=== PATIENT | male | born 1965 | race Caucasian/White ===

== ENCOUNTER → 2021-08-02 | Outpatient (CLI) | payer OTHER ==
[~2021-08-02] MED LIST: CORTISPORIN SUS10 ML OT; HUMALOG100 UNIT/2 SQ; HYDROCODONE BIT1 T11 PO; LEVEMIR10 ML SC; LISINOPRIL20 MG PO; SIMVASTATIN10 MG PO
== END | disposition home or self-care (01) ==
LOC: RAD 08:19
PROVIDERS: ATTEND Chiropractor
DX: M43.8X6 Other specified deforming dorsopathies, lumbar region (principal); M51.36 Other intervertebral disc degeneration, lumbar region

== ENCOUNTER 2025-04-27 08:17 | Emergency (ER) | payer OTHER ==
[2025-04-27] MEDS ORDERED: IOHEXOL 300 MG/ML 100 ML VIAL IV ONE (08:25)
[2025-04-27] MEDS ORDERED: SODIUM CHLORIDE 0.9% 1,000 ML IV ONE (08:44)
[2025-04-27] MEDS ORDERED: ceFAZolin sodium 2 GM in SYRINGE INFUSION 20 ML IV ONE (08:45)
[2025-04-27] MEDS ORDERED: IOHEXOL 300 MG/ML 100 ML VIAL ONE (08:50)
[2025-04-27] MEDS ORDERED: NOREPINEPHRINE BITARTRATE/D5W 250 ML IV ONE ×2 (08:52→11:00)
[2025-04-27] MEDS ORDERED: SODIUM CHLORIDE 0.9% 500 ML IV ONE ×2 (09:01→10:28)
[2025-04-27] MEDS ORDERED: TRANEXAMIC ACID IN NACL,ISO-OS 100 ML IV ONE (09:40)
[2025-04-27 09:56] LABS: MEAN CELL VOLUME 88.5 fl (80.0-94.0); MEAN CORPUSCULAR HGB 28.8 pg (27.0-31.0); MEAN PLATELET VOLUME 9.7 fl (9.6-12.3); NUCLEATED RED BLOOD CELL 0.0 % (0.0-0.0); NUCLEATED RED BLOOD CELL 0.0 10*3/uL (0.0-0.0); PLATELET COUNT AUTOMATED 231 10*3/uL (130-400); RED CELL DISTRI WIDTH 13.9 % (0-14.5)
[2025-04-27] MEDS ORDERED: VASOPRESSIN 100 ML IV SCH (10:00)
[2025-04-27 10:06] LABS: MANUAL DIFF REFLEX YES
[2025-04-27 10:16] VITALS: BP 79/43
[2025-04-27 10:16] LABS: ACT PARTIAL THROMBO TIME 27.6 SECONDS (20.0-32.1)
[2025-04-27 10:17] LABS: BUN 21.0 mg/dl (9-23); PLATELET SUFFICIENCY NORMAL (NORMAL); SGPT/ALT 46.0 U/L (5-49); VACUOLATION OF NEUTROPHILS SLIGHT
[2025-04-27] MEDS ORDERED: EPINEPHrine IN 0.9 % SOD CHLOR 250 ML IV ONE (10:59)
== END 2025-04-27 12:37 | disposition short-term general hospital (02) ==
LOC: ED 08:17
PROVIDERS: Student in an Organized Health Care Education/Training Program
DX: S32.592A Other specified fracture of left pubis, initial encounter for closed fracture (principal); S32.601A Unspecified fracture of right ischium, initial encounter for closed fracture; S00.81XA Abrasion of other part of head, initial encounter; S92.001A Unspecified fracture of right calcaneus, initial encounter for closed fracture; Z79.899 Other long term (current) drug therapy; Z79.4 Long term (current) use of insulin; Z98.890 Other specified postprocedural states; W17.89XA Other fall from one level to another, initial encounter; Y93.89 Activity, other specified; Y92.89 Other specified places as the place of occurrence of the external cause; Y99.8 Other external cause status